=== PATIENT | male | born 1990 | race Caucasian/White ===

== ENCOUNTER 2024-12-31 14:23 | Outpatient (CLI) | payer BC | END 2024-12-31 14:24 | disposition home or self-care (01) | LOC: CSHWCC 14:23 | PROVIDERS: ATTEND Nurse Practitioner Family | DX: S31.102D Unspecified open wound of abdominal wall, epigastric region without penetration into peritoneal cavity, subsequent encounter (principal); K65.1 Peritoneal abscess; L59.8 Other specified disorders of the skin and subcutaneous tissue related to radiation; Z85.09 Personal history of malignant neoplasm of other digestive organs | CPT/HCPCS: 11042; 11045; 99213; G0463 ==

== ENCOUNTER 2025-01-03 15:08 | Outpatient (CLI) | payer BC | END 2025-01-03 15:09 | disposition home or self-care (01) | LOC: CSHWCC 15:08 | PROVIDERS: ATTEND Nurse Practitioner Family | DX: K65.1 Peritoneal abscess (principal); L59.8 Other specified disorders of the skin and subcutaneous tissue related to radiation; S31.102S Unspecified open wound of abdominal wall, epigastric region without penetration into peritoneal cavity, sequela; Z85.09 Personal history of malignant neoplasm of other digestive organs | CPT/HCPCS: 11042; 97606 ==

== ENCOUNTER 2025-01-05 13:39 | Outpatient (CLI) | payer BC | END 2025-01-05 13:40 | disposition home or self-care (01) | LOC: CSHWCC 13:39 | PROVIDERS: ATTEND Nurse Practitioner Family | DX: K65.1 Peritoneal abscess (principal); L59.8 Other specified disorders of the skin and subcutaneous tissue related to radiation; S31.102S Unspecified open wound of abdominal wall, epigastric region without penetration into peritoneal cavity, sequela; Z85.09 Personal history of malignant neoplasm of other digestive organs | CPT/HCPCS: 97606 ==

== ENCOUNTER 2025-01-07 12:51 | Outpatient (CLI) | payer BC | END 2025-01-07 12:52 | disposition home or self-care (01) | LOC: CSHWCC 12:51 | PROVIDERS: ATTEND Nurse Practitioner Family | DX: K65.1 Peritoneal abscess (principal); L59.8 Other specified disorders of the skin and subcutaneous tissue related to radiation; S31.102S Unspecified open wound of abdominal wall, epigastric region without penetration into peritoneal cavity, sequela; Z85.09 Personal history of malignant neoplasm of other digestive organs | CPT/HCPCS: 99213; G0463 ==

== ENCOUNTER 2025-01-10 12:57 | Outpatient (CLI) | payer BC | END 2025-01-10 12:58 | disposition home or self-care (01) | LOC: CSHWCC 12:57 | PROVIDERS: ATTEND Nurse Practitioner Family | DX: K65.1 Peritoneal abscess (principal); L59.8 Other specified disorders of the skin and subcutaneous tissue related to radiation; S31.102S Unspecified open wound of abdominal wall, epigastric region without penetration into peritoneal cavity, sequela; Z85.09 Personal history of malignant neoplasm of other digestive organs | CPT/HCPCS: 11042; 11045 ==

== ENCOUNTER 2025-01-18 15:38 | Outpatient (CLI) | payer BC | END 2025-01-18 15:39 | disposition home or self-care (01) | LOC: CSHWCC 15:38 | PROVIDERS: ATTEND Nurse Practitioner Family | DX: S31.102D Unspecified open wound of abdominal wall, epigastric region without penetration into peritoneal cavity, subsequent encounter (principal); K65.1 Peritoneal abscess; L59.8 Other specified disorders of the skin and subcutaneous tissue related to radiation; Z85.09 Personal history of malignant neoplasm of other digestive organs | CPT/HCPCS: 11042; 11045 ==

== ENCOUNTER 2025-01-31 15:25 | Outpatient (CLI) | payer BC | END 2025-01-31 15:26 | disposition home or self-care (01) | LOC: CSHWCC 15:25 | PROVIDERS: ATTEND Nurse Practitioner Family | DX: S31.102D Unspecified open wound of abdominal wall, epigastric region without penetration into peritoneal cavity, subsequent encounter (principal); L59.8 Other specified disorders of the skin and subcutaneous tissue related to radiation; K65.1 Peritoneal abscess; Z85.09 Personal history of malignant neoplasm of other digestive organs | CPT/HCPCS: 11042; 97605 ==

== ENCOUNTER 2025-02-15 14:56 | Outpatient (CLI) | payer BC | END 2025-02-15 14:57 | disposition home or self-care (01) | LOC: CSHWCC 14:56 | PROVIDERS: ATTEND Nurse Practitioner Family | DX: S31.102S Unspecified open wound of abdominal wall, epigastric region without penetration into peritoneal cavity, sequela (principal); K65.1 Peritoneal abscess; L59.8 Other specified disorders of the skin and subcutaneous tissue related to radiation; Z85.09 Personal history of malignant neoplasm of other digestive organs | CPT/HCPCS: 11042 ==